=== PATIENT | male | born 1965 | race Caucasian/White ===

== ENCOUNTER 2022-07-09 00:20 | Day surgery (SDC) | payer BC, SELFPAY ==
[2022-06-19 14:13] VITALS: BMI 26.9
--- NOTE | 2022-07-08 15:39 | PM.HPGS ---
History of Present Illness History of Present Illness Consent: Risks, benefits, and alternatives have been discussed and questions answered. Patient agrees to proceed with procedure. Chief complaint: neoplasm screening Narrative: Herbert Figueroa is a 57 year old male referred for colon cancer screening. He has a family history of colon cancer. Review of Systems Review of Systems: All systems reviewed & are unremarkable except as noted in HPI and below PMFSH Past Medical History Medical History Seizure Social History Social History Social History: never smoker Smoking status: Never smoker Alcohol intake: never Living arrangements: with family Spiritual care concerns: No Meds Home Medications and Allergies Home Medications Medication Instructions Recorded Confirmed Type cetirizine 10 mg tablet 10 mg PO DAILY 06/19/22 06/19/22 History lisinopril 10 mg tablet 10 mg PO DAILY 06/19/22 06/19/22 History phenytoin sodium extended 100 mg 400 mg PO DAILY 06/19/22 06/19/22 History capsule Allergies Allergy/AdvReac Type Severity Reaction Status Date / Time No Known Allergies Allergy Unverified 07/09/22 07:17 Exam Const: General: alert Orientation/consciousness: patient oriented x3 Resp: Auscultation: clear to auscultation bilaterally Cardio: Rhythm: regular rhythm GI: GI Palp: Yes Soft to palpation and No Tenderness to palpation present (GI) Neuro: General: patient oriented x3 Assessment and Plan Assessment and plan (1) Colon cancer screening: Code(s): Z12.11 - Encounter for screening for malignant neoplasm of colon Status: Acute Assessment and Plan: Colonoscopy with possible biopsy or polypectomy or cautery or injection of substances.
[2022-07-09 07:18] VITALS: BP 146/94; PULSE 64; RESP 18; TEMP 36.3; O2SAT 99
[2022-07-09] MEDS: LACTATED RINGERS 1,000 ML 150 ML IV CONT (07:29)
--- NOTE | 2022-07-09 08:11 | WPDANESEPPF ---
Anes - Initial Pre Proc Eval Procedure: Operation Date: 07/09/22 08:30 Proposed Procedures p Screening Colonoscopy - Michael Peacock MD Date/Time: 07/09/22 08:11 Surgeon: Michael Peacock MD Pre Op Diagnosis: neoplasm screening Patient Data Age: 57 Gender: M Height: 1.7 m Weight: 77.5 kg Last Vital Signs Temp 97.4 F L 07/09/22 07:18 Pulse 64 07/09/22 07:18 Resp 18 07/09/22 07:18 BP 146/94 H 07/09/22 07:18 Pulse Ox 99 07/09/22 07:18 O2 Del Method Room Air 07/09/22 07:18 Allergies Allergy/AdvReac Type Severity Reaction Status Date / Time No Known Allergies Allergy Unverified 07/09/22 07:17 Home Medications Medication Instructions Recorded Confirmed Type cetirizine 10 mg tablet 10 mg PO DAILY 06/19/22 06/19/22 History lisinopril 10 mg tablet 10 mg PO DAILY 06/19/22 06/19/22 History phenytoin sodium extended 100 mg 400 mg PO DAILY 06/19/22 06/19/22 History capsule Patient hx anesthesia problems: none Family hx anesthesia problems: none Results Review: All pre-operative results and documents have been reviewed as part of the pre-operative evaluation. [facility] Past Medical History Medical History Seizure Social History Social History Social History: never smoker Smoking status: Never smoker Alcohol intake: never Living arrangements: with family Spiritual care concerns: No Anes - Eval Final PreProcedure Day of Procedure 07/09/22 08:11 Patient weight: normal Heart: regular rate and rhythm Lungs: clear to auscultation Airway: Mallampati scale class II Neurological: alert and oriented Last oral intake: >/= 8 hours ASA classification: II Emergent: no Anesthetic plan: proceed Anesthesia type and monitoring: general GIVS and standard monitoring Results Review: All pre-operative results and documents have been reviewed as part of the pre-operative evaluation. Informed Consent: The patient's anesthetic plan and its attendant risks and benefits were discussed with the patient/family/POA. Questions were solicited and answers provided to the satisfaction of the patient/family/POA.
[2022-07-09 08:49] VITALS: BP 132/81; PULSE 59; RESP 18; O2SAT 97
[2022-07-09 08:59] VITALS: BP 142/102; PULSE 71; RESP 21; O2SAT 97
[2022-07-09 09:05] VITALS: BP 155/94; PULSE 69; RESP 23; O2SAT 98
== END 2022-07-09 09:14 | disposition home or self-care (01) ==
PROVIDERS: PCP Internal Medicine; Visit Provider Internal Medicine Gastroenterology
PROC: 0DJD8ZZ Inspection of Lower Intestinal Tract, Via Natural or Artificial Opening Endoscopic (ICD-10-PCS; CPT 45378; principal; 2022-07-09 08:30)
DX: Z12.11 Encounter for screening for malignant neoplasm of colon (principal); K57.30 Diverticulosis of large intestine without perforation or abscess without bleeding; K64.8 Other hemorrhoids; Z80.0 Family history of malignant neoplasm of digestive organs; G40.909 Epilepsy, unspecified, not intractable, without status epilepticus
CPT/HCPCS: 45378; J2704; J7120